=== PATIENT | male | born 1955 | race Caucasian/White ===

== ENCOUNTER 2019-08-29 00:21 | Day surgery (SDC) | payer BC, SELFPAY ==
[2019-08-23 15:19] VITALS: BMI 33.0
[2019-08-29 11:22] VITALS: BP 139/75; PULSE 65; RESP 14; TEMP 36.4; O2SAT 98; BMI 31.8
[2019-08-29] MEDS: LACTATED RINGERS 1,000 ML 150 ML IV CONT (11:40)
--- NOTE | 2019-08-29 11:49 | WPDANESEPPF ---
Anes - Initial Pre Proc Eval Procedure: Operation Date: 08/29/19 12:30 Proposed Procedures p Screening Colonoscopy - Ash Kulkarni DO Date/Time: 08/29/19 11:49 Surgeon: Ash Kulkarni DO Pre Op Diagnosis: Neoplasm Screening Patient Data Age: 63 Gender: M Height: 6 ft Weight: 106.6 kg Last Vital Signs Temp 97.5 F L 08/29/19 11:22 Pulse 65 08/29/19 11:22 Resp 14 08/29/19 11:22 BP 139/75 08/29/19 11:22 Pulse Ox 98 08/29/19 11:22 Allergies Allergy/AdvReac Type Severity Reaction Status Date / Time No Known Allergies Allergy Verified 08/29/19 11:17 Home Medications Medication Instructions Recorded Confirmed Type aspirin 81 mg tablet,delayed 81 mg PO DAILY 07/18/19 08/29/19 History release atorvastatin 20 mg tablet 20 mg PO DAILY 07/18/19 08/29/19 History losartan 25 mg tablet 25 mg PO DAILY 07/18/19 08/29/19 History fluticasone propion-salmeterol 1 inhalation INHALATION BID PRN 08/23/19 08/29/19 History [Advair Diskus] Patient hx anesthesia problems: none Family hx anesthesia problems: none PMFSH Past Medical History Medical History (Updated 08/29/19 @ 11:48 by Tremaine Deleon MD) Asthma HTN (hypertension), benign Mixed hyperlipidemia Wears hearing aid in both ears Social History Social History Smoking status: Never smoker Alcohol intake: current Anes - Eval Final PreProcedure Day of Procedure 08/29/19 11:49 Patient weight: obese Heart: regular rate and rhythm Lungs: clear to auscultation Airway: Mallampati scale class II Neurological: alert and oriented Last oral intake: >/= 8 hours ASA classification: III Emergent: no Anesthetic plan: proceed Anesthesia type and monitoring: general GIVS and standard monitoring Informed Consent: The patient's anesthetic plan and its attendant risks and benefits were discussed with the patient/family/POA. Questions were solicited and answers provided to the satisfaction of the patient/family/POA.
--- NOTE | 2019-08-29 12:40 | P.HP_ITS ---
H&P: HPI History of Present Illness Chief complaint: Neoplasm Screening Narrative: Reason for visit is colonoscopy. For pleasant gentleman's being readied for screening and colonoscopy. His last colonoscopy was 10 years ago. GI review systems negative. Fourteen point review systems negative other than occasional shortness of breath which response to Advair. [facility] Past Medical History Medical History (Updated 08/29/19 @ 11:48 by Tremaine Deleon MD) Asthma HTN (hypertension), benign Mixed hyperlipidemia Wears hearing aid in both ears Social History Social History Smoking status: Never smoker Alcohol intake: current Meds Home Medications and Allergies Home Medications Medication Instructions Recorded Confirmed Type aspirin 81 mg tablet,delayed 81 mg PO DAILY 07/18/19 08/29/19 History release atorvastatin 20 mg tablet 20 mg PO DAILY 07/18/19 08/29/19 History losartan 25 mg tablet 25 mg PO DAILY 07/18/19 08/29/19 History fluticasone propion-salmeterol 1 inhalation INHALATION BID PRN 08/23/19 08/29/19 History [Advair Diskus] Allergies Allergy/AdvReac Type Severity Reaction Status Date / Time No Known Allergies Allergy Verified 08/29/19 11:17 Vital Signs Vital Signs - 24 hr 08/29/19 11:22 Temperature 36.4 C L Pulse Rate 65 Respiratory Rate 14 Blood Pressure 139/75 Pulse Oximetry 98 Exam Narrative: Exam Narrative: General: very pleasant patient in no acute distress. HEENT: Head was normocephalic sclerae is clear mouth without masses neck was supple. Heart: Rate rhythm regular without S3 or S4. Lungs: CTA. Abdomen: Soft with no guarding or rigidity. Bowel sounds were active. Neurologic: Cranial nerves 2 through 12 intact. No focal defects. No clonus. Musculoskeletal system: Revealed no joint tenderness or swelling no muscle atrophy. Extremities: Reveal no significant edema. Skin: Warm and dry with normal turgor. Mental status: intact. Patient is alert and oriented. Impression: Screening colonoscopy. Recommendation colonoscopy.
[2019-08-29 12:59] VITALS: BP 118/95; PULSE 72; RESP 18; O2SAT 93
[2019-08-29 13:09] VITALS: BP 115/56; PULSE 59; RESP 17; O2SAT 94
[2019-08-29 13:19] VITALS: BP 127/70; PULSE 59; RESP 18; O2SAT 96
== END 2019-08-29 13:32 | disposition home or self-care (01) ==
PROVIDERS: PCP Family Medicine; Visit Provider Internal Medicine Gastroenterology
PROC: 0DJD8ZZ Inspection of Lower Intestinal Tract, Via Natural or Artificial Opening Endoscopic (ICD-10-PCS; CPT 45378; principal; 2019-08-29 12:30)
DX: Z12.11 Encounter for screening for malignant neoplasm of colon (principal); K63.5 Polyp of colon; I10 Essential (primary) hypertension; J45.909 Unspecified asthma, uncomplicated; E78.2 Mixed hyperlipidemia; Z79.82 Long term (current) use of aspirin; E66.9 Obesity, unspecified; Z68.31 Body mass index [BMI] 31.0-31.9, adult
CPT/HCPCS: 45380; 88305; J2704; J7120

== ENCOUNTER 2023-05-04 07:54 | Day surgery (SDC) | payer MEDICARE, SELFPAY ==
[2023-04-17 14:53] VITALS: BMI 34.9
[2023-05-04 09:22] VITALS: BP 162/94; PULSE 73; RESP 18; TEMP 36.8; O2SAT 96
[2023-05-04] MEDS: LACTATED RINGERS 1,000 ML 150 ML IV CONT (09:40)
--- NOTE | 2023-05-04 09:56 | P.PNAN_ITS ---
Anes - Initial Pre Proc Eval Procedure: Operation Date: 05/04/23 10:30 Proposed Procedures p Colonoscopy - Jorge Sim MD Date/Time: 05/04/23 09:56 Surgeon: Jorge Sim MD Pre Op Diagnosis: History of Polyps Patient Data Age: 67 Gender: M Height: 1.8 m Weight: 112.95 kg Last Vital Signs Temp 36.8 C 05/04/23 09:22 Pulse 73 05/04/23 09:22 Resp 18 05/04/23 09:22 BP 162/94 H 05/04/23 09:22 Pulse Ox 96 05/04/23 09:22 O2 Del Method Room Air 05/04/23 09:22 Allergies Allergy/AdvReac Type Severity Reaction Status Date / Time No Known Allergies Allergy Verified 05/04/23 09:15 Home Medications Medication Instructions Recorded Confirmed Type aspirin 81 mg tablet,delayed 81 mg PO DAILY 07/18/19 05/04/23 History release (Adult Low Dose Aspirin) fluticasone 250 mcg-salmeterol 50 1 inh inhalation BID PRN Dyspnea 06/12/20 05/04/23 Rx mcg/dose blistr powdr for #60 ea inhalation (Advair Diskus) losartan 25 mg tablet See Rx Instructions .Route 06/02/22 05/04/23 Rx .COMPLEX #90 tabs atorvastatin 20 mg tablet See Rx Instructions .Route 03/04/23 05/04/23 Rx .COMPLEX #90 tabs Patient hx anesthesia problems: none Family hx anesthesia problems: none Results Review: All pre-operative results and documents have been reviewed as part of the pre-operative evaluation. [facility] Past Medical History Medical History Asthma HTN (hypertension), benign Lumbosacral radiculopathy at L3 Mixed hyperlipidemia Obesity (BMI 30.0-34.9) Wears hearing aid in both ears Social History Social History Smoking status: Never smoker Alcohol intake: current Substance use type: does not use Lack of Transportation: No Lack of Food: Never True Current Housing: I Have Housing Concerned About Future Housing: No Difficulty Paying Gas/Electric Bills: No Difficulty Paying for Meds: No Currently Unemployed: No Education: High School Diploma/GED Difficulty w/ Childcare or Family Care: No Living arrangements: with family Spiritual care concerns: No Anes - Eval Final PreProcedure Day of Procedure 05/04/23 09:56 Patient weight: obese Heart: regular rate and rhythm Lungs: clear to auscultation Airway: Mallampati scale class III Neurological: alert and oriented Last oral intake: >/= 8 hours ASA classification: III Emergent: no Anesthetic plan: proceed Anesthesia type and monitoring: general GIVS and standard monitoring Results Review: All pre-operative results and documents have been reviewed as part of the pre- operative evaluation. Informed Consent: The patient's anesthetic plan and its attendant risks and benefits were discussed with the patient/family/POA. Questions were solicited and answers provided to the satisfaction of the patient/family/POA.
--- NOTE | 2023-05-04 10:05 | PM.HPGS ---
History of Present Illness History of Present Illness Consent: Risks, benefits, and alternatives have been discussed and questions answered. Patient agrees to proceed with procedure. Chief complaint: History of Polyps Narrative: César Guevara is a 67 year old male with colon polyp in 2019 Review of Systems Constitutional: Constitutional: Denies headache(s) and Denies weakness Eyes: Eyes: Denies blurry vision ENT: Reports Normal hearing present, Denies headache(s) and Denies neck pain Cardiovascular: Cardiovascular: Denies chest pain and Denies dyspnea Respiratory: Respiratory: Denies dyspnea Gastrointestinal: Gastrointestinal: Reports no additional gastrointestinal complaints Genitourinary: Genitourinary: Denies dysuria Musculoskeletal: Musculoskeletal: Denies neck pain Integumentary/Breasts: Skin/Breast: Denies dry skin Neurologic: Reports Normal hearing present, Denies headache(s) and Denies weakness Psychiatric: Psychiatric: Denies anxiety Endocrine: Endocrine: Denies change in body appearance Hematologic/Lymphatic: Hematologic/Lymphatic: Denies easy bleeding Allergic/Immunologic: Allergic/Immunologic: Denies urticaria PMFSH Past Medical History Medical History Asthma HTN (hypertension), benign Lumbosacral radiculopathy at L3 Mixed hyperlipidemia Obesity (BMI 30.0-34.9) Wears hearing aid in both ears Social History Social History Smoking status: Never smoker Alcohol intake: current Substance use type: does not use Lack of Transportation: No Lack of Food: Never True Current Housing: I Have Housing Concerned About Future Housing: No Difficulty Paying Gas/Electric Bills: No Difficulty Paying for Meds: No Currently Unemployed: No Education: High School Diploma/GED Difficulty w/ Childcare or Family Care: No Living arrangements: with family Spiritual care concerns: No Meds Home Medications and Allergies Home Medications Medication Instructions Recorded Confirmed Type aspirin 81 mg tablet,delayed 81 mg PO DAILY 07/18/19 05/04/23 History release (Adult Low Dose Aspirin) fluticasone 250 mcg-salmeterol 50 1 inh inhalation BID PRN Dyspnea 06/12/20 05/04/23 Rx mcg/dose blistr powdr for #60 ea inhalation (Advair Diskus) losartan 25 mg tablet See Rx Instructions .Route 06/02/22 05/04/23 Rx .COMPLEX #90 tabs atorvastatin 20 mg tablet See Rx Instructions .Route 03/04/23 05/04/23 Rx .COMPLEX #90 tabs Allergies Allergy/AdvReac Type Severity Reaction Status Date / Time No Known Allergies Allergy Verified 05/04/23 09:15 Vital Signs Vital Signs - 24 hr 05/04/23 09:22 Temperature 98.3 F Pulse Rate 73 Respiratory Rate 18 Blood Pressure 162/94 H Pulse Oximetry 96 Oxygen Delivery Room Air Exam Const: General: comfortable and no acute distress HENMT: Face/Nose/Sinus: Normal nares present Eyes: General: appearance normal, both eyes and all related structures Neck: Neck: no JVD Resp: Auscultation: clear to auscultation bilaterally Cardio: Rate: regular rate Rhythm: regular rhythm GI: Inspection: non-distended GI Palp: Yes Soft to palpation Skin: General skin exam: normal color Neuro: General: gait normal Speech: normal speech Extrem: General: normal to inspection Psych: Mental Status: mental status grossly normal Assessment and Plan Assessment and plan (1) Colon polyp: Qualifiers: Colon polyp type: unspecified Colon location: unspecified part of colon Qualified Code(s): K63.5 - Polyp of colon Code(s): K63.5 - Polyp of colon Status: Acute Assessment and Plan: colonoscopy
[2023-05-04 10:30] VITALS: BP 124/55; PULSE 67; RESP 16; O2SAT 95
[2023-05-04 10:40] VITALS: BP 131/93; PULSE 64; RESP 16; O2SAT 97
--- NOTE | 2023-05-04 10:42 | WPDANESPN ---
Anes - Prog Note Post-Op Date/Time: 05/04/23 10:42 Cardiovascular status: normal Respiratory status: normal Airway patency: baseline Mental status: baseline Post-Op hydration status: normal Vital Signs: Last Vital Signs Temp 36.8 C 05/04/23 09:22 Pulse 67 05/04/23 10:30 Resp 16 05/04/23 10:30 BP 124/55 L 05/04/23 10:30 Pulse Ox 95 05/04/23 10:30 O2 Del Method Room Air 05/04/23 09:22 Pain Score (VAS): 0 I/O: Intake & Output 05/03/23 05/04/23 05/04/23 23:59 07:59 15:59 Intake Total 200 Balance 200 Patient Feedback: Patient satisfied with anesthetic care.
[2023-05-04 10:50] VITALS: BP 125/70; PULSE 64; RESP 16; O2SAT 97
--- NOTE | 2023-05-04 11:09 | SUR.PHASEII ---
iv d/c tip intact, d/c instructions given with at bedside. all questions and concerns addressed. patient transported via wheelchair to front of building to 's vehicle. nurse noted patient's left arm started bleeding where previous iv was placed. patient transferred to personal vehicle and nurse left to grab gauze and tape and alcohol wipes. returned and changed patient's bandage in vehicle.
== END 2023-05-04 11:08 | disposition home or self-care (01) ==
PROVIDERS: PCP Family Medicine; Visit Provider Internal Medicine Gastroenterology
PROC: 0DJD8ZZ Inspection of Lower Intestinal Tract, Via Natural or Artificial Opening Endoscopic (ICD-10-PCS; CPT 45378; principal; 2023-05-04 10:30)
DX: Z86.010 Personal history of colon polyps (principal); D12.4 Benign neoplasm of descending colon; K64.8 Other hemorrhoids
CPT/HCPCS: 45385

== ENCOUNTER 2023-05-04 08:59 | Outpatient (NON) | payer MEDICARE, SELFPAY | END 2023-05-04 09:00 | disposition home or self-care (01) | PROVIDERS: PCP Family Medicine; Visit Provider Internal Medicine Gastroenterology | DX: D12.4 Benign neoplasm of descending colon (principal) | CPT/HCPCS: 88305 ==

== ENCOUNTER 2025-03-07 14:17 | Emergency (ER) | payer MEDICARE, SELFPAY ==
[2025-03-07 14:29] VITALS: BP 135/72; PULSE 75; RESP 16; TEMP 36.1; O2SAT 97
--- NOTE | 2025-03-07 14:49 | ED.SKABFB ---
HPI - Skin/Abscess/Foreign Bdy General Chief complaint: Skin/Abscess/Foreign Body Stated complaint: Skin Irritation Time Seen by Provider: 03/07/25 14:20 Source: patient and RN notes reviewed Mode of arrival: ambulatory Limitations: no limitations History of Present Illness HPI narrative: 69-year-old male presents [facility] complaining of purplish bumps to his right lower arm. Patient is a noticed some yesterday. Patient reports to purplish circular lesions to his right lower arm. Patient denies any apparent injuries being bit by something. Patient denies any fevers, aches, chills, muscle aches, neck pain, headaches, vision changes, nausea vomiting, chest pain, breathing problems, or any other symptoms. Patient says lesions are nontender to palpate. Patient denies any redness swelling or drainage. Patient has not done anything [id number] to help with symptoms. Related Data Home Medications ?Medication ?Instructions ?Recorded ?Confirmed ?Last Taken ?Type aspirin 81 mg tablet,delayed 81 mg PO DAILY 07/18/19 03/11/24 05/03/23 History release (Adult Low Dose Aspirin) Allergies Allergy/AdvReac Type Severity Reaction Status Date / Time No Known Allergies Allergy Verified 03/07/25 14:22 Review of Systems Review of Systems: CONSTITUTIONAL: Denies fever, chills, or sweats. EYES: Denies visual changes, redness, or discharge. ENT: Denies rhinorrhea, congestion, sore throat, or otalgia. CARDIOVASCULAR: Denies chest pain, palpitations, or edema. RESPIRATORY: Denies cough or dyspnea. GASTROINTESTINAL: Denies abdominal pain, nausea, vomiting, or diarrhea. GENITOURINARY: Denies dysuria or hematuria. SKIN: Denies rash or itching. Positive for lesions. MUSCULOSKELETAL: Denies back pain, joint pain, or myalgia. NEUROLOGIC: Denies headache, numbness, or weakness. PSYCHIATRIC: Denies anxiety or depression. All other systems reviewed are negative, except as documented in HPI. [facility] Past Medical History Medical History Tubular adenoma of colon Need for hepatitis C screening test negative 2023 Obesity (BMI 30.0-34.9) Lumbosacral radiculopathy at L3 Asthma HTN (hypertension), benign Wears hearing aid in both ears Mixed hyperlipidemia Social History Social History Smoking status: Never smoker Alcohol intake: current Substance use type: does not use Lack of Transportation: No Lack of Food: Never True Current Housing: I Have Housing Concerned About Future Housing: No Difficulty Paying Gas/Electric Bills: No Difficulty Paying for Meds: No Currently Unemployed: No Education: High School Diploma/GED Difficulty w/ Childcare or Family Care: No Living arrangements: with family Spiritual care concerns: No Comments At the time of my signature, I reviewed and agree with the nursing past medical, surgical, social, and family history. There is no relevant family history pertinent to the patient complaint. Exam Narrative: GENERAL: This is a well-nourished, well-developed adult, in no apparent distress. They are non ill-appearing, nontoxic appearing. HEAD: normocephalic, atraumatic. EYES: Sclera clear/white. Conjunctiva normal. Vision is grossly intact. Extraocular movements intact EARS: External ears normal, Hearing grossly intact. NOSE: External nose normal THROAT: Mucous membranes moist, NECK: Neck supple, CARDIOVASCULAR: Regular rate and rhythm RESPIRATORY: Respiratory rate normal, respiratory effort nonlabored, no respiratory distress SKIN: Right lower arm: 2 circular purplish macular papular lesions under adjacent to each other located to the lower medial anterior forearm. They are nontender to palpate. There is reddish pink clearance to the center of each lesion. No area of fluctuance, no induration. No exudate. Largest lesion measures approximately 2 cm x 2 cm and the smaller lesion measures 1 cm x 1 cm. NEURO: awake, alert, and oriented to person, place and time. There were no obvious focal neurologic abnormalities. EXTREMITIES: No joint tenderness, effusion, or edema noted. Course Course Emergency Course: Portions of this record may have been created with voice recognition software Level of Care: Express Care Visit Vital Signs Vital signs: Vital Signs Temperature 96.9 F L 03/07/25 14:29 Pulse Rate 75 03/07/25 14:29 Respiratory Rate 16 03/07/25 14:29 Blood Pressure 135/72 03/07/25 14:29 Pulse Oximetry 97 03/07/25 14:29 Temperature 96.9 F L 03/07/25 14:29 Pulse Rate 75 03/07/25 14:29 Respiratory Rate 16 03/07/25 14:29 Blood Pressure 135/72 03/07/25 14:29 Pulse Oximetry 97 03/07/25 14:29 Reviewed MDM - Skin/Abscess/Foreign Bdy MDM Narrative Medical decision making narrative: Lesions appear to be to be bruising, unclear cause of the lesions. Recommend close follow-up PCP. Discussed physical exam findings. Advised supportive measures and signs/symptoms to go to the ER. Pt is appropriate for outpt treatment and f/u. Differential Diagnosis Differential diagnosis: Likely other (Contusion, bruise, hematoma, purpura, petechiae,) Critical Care Time Critical Care Time Critical Care Time: No Discharge Plan Discharge Clinical Impression: Bruise Patient Disposition: Home Condition: Stable Instructions: Hematoma (ED) Additional Instructions: May apply cold compresses, 15 minutes a few times a day. The bruise may change color before it fully resolved. Please follow-up with your PCP in 3-5 days. Go to the ER if he develops full-body bruising or rash, fevers, body aches, chills nausea, vomiting, chest pain, breathing problems, or any serious concerns. Patient Language: Lithuanian Prescriptions: No Action aspirin [Adult Low Dose Aspirin] 81 mg tablet,delayed release (DR/EC) 81 mg PO DAILY fluticasone propion-salmeterol [Advair Diskus] 250-50 mcg/dose blister with device 1 inh INHALATION BID PRN (Reason: Dyspnea) Qty: 60 11RF losartan 25 mg tablet See Rx Instructions .ROUTE .COMPLEX Qty: 90 1RF Dose Instruction: TAKE 1 TABLET BY MOUTH DAILY Rx Instructions: TAKE 1 TABLET BY MOUTH DAILY atorvastatin 20 mg tablet See Rx Instructions .ROUTE .COMPLEX Qty: 90 1RF Dose Instruction: TAKE 1 TABLET BY MOUTH DAILY Rx Instructions: TAKE 1 TABLET BY MOUTH DAILY Follow-up/Referrals: Quincy Watson MD [Primary Care Provider, Family Practice] Time of Disposition: 14:45
== END 2025-03-07 14:50 | disposition home or self-care (01) ==
PROVIDERS: PCP Family Medicine
DX: S50.11XA Contusion of right forearm, initial encounter (principal); X58.XXXA Exposure to other specified factors, initial encounter; I10 Essential (primary) hypertension; E78.2 Mixed hyperlipidemia; J45.909 Unspecified asthma, uncomplicated; E66.9 Obesity, unspecified; Z68.34 Body mass index [BMI] 34.0-34.9, adult; Z79.82 Long term (current) use of aspirin
CPT/HCPCS: 99211; G0463